=== PATIENT | male | born 1960 | race Caucasian/White ===

== ENCOUNTER → 2023-09-28 | Outpatient (CLI) | payer BC | LOC: MHCPAIN 10:13 | DX: M50.30 Other cervical disc degeneration, unspecified cervical region (principal); M47.812 Spondylosis without myelopathy or radiculopathy, cervical region; M48.02 Spinal stenosis, cervical region | CPT/HCPCS: G0463 ==

== ENCOUNTER → 2023-10-06 | Outpatient (CLI) | payer BC | LOC: MHCPAIN 10:07 | DX: M47.22 Other spondylosis with radiculopathy, cervical region (principal); M48.02 Spinal stenosis, cervical region | CPT/HCPCS: G0463 ==

== ENCOUNTER → 2023-11-25 | Outpatient (CLI) | payer BC ==
[~2023-11-25] MED LIST: Atropine 1 MG/10 ML SYRINGE IV ONE; Glycopyrrolate 0.2 MG/ML 1 ML VIAL ONE; Iohexol 300 - 10 ML VIAL ONE; Lidocaine PF 2% (20 MG/ML) 2 ML VIAL ONE; ePHEDrine 50 MG/10 ML VIAL IV ONE
== END ==
LOC: MHCPAIN 08:12
DX: M54.12 Radiculopathy, cervical region (principal); M54.2 Cervicalgia
CPT/HCPCS: J0461; J1100; Q9967

== ENCOUNTER → 2023-12-14 | Outpatient (CLI) | payer BC | LOC: MHCPAIN 08:59 | DX: M47.812 Spondylosis without myelopathy or radiculopathy, cervical region (principal); M48.02 Spinal stenosis, cervical region; M54.12 Radiculopathy, cervical region | CPT/HCPCS: G0463 ==